=== PATIENT | female | born 1970 | race Caucasian/White ===

== ENCOUNTER → 2017-11-24 | Outpatient (CLI) | payer BC | LOC: FIMAGING 14:16 | PROVIDERS: ATTEND Physician Assistant | DX: M79.675 Pain in left toe(s) (principal); M79.89 Other specified soft tissue disorders ==

== ENCOUNTER → 2018-03-04 | Outpatient (CLI) | payer BC | LOC: BMCIMAGING 11:04 | PROVIDERS: ATTEND Podiatrist Foot & Ankle Surgery | DX: M79.672 Pain in left foot (principal); M89.8X7 Other specified disorders of bone, ankle and foot ==

== ENCOUNTER → 2018-03-10 | Outpatient (CLI) | payer BC | LOC: FIMAGING 11:40 → EDSTATUS 11:41 | PROVIDERS: ATTEND Family Medicine Sports Medicine | DX: M25.551 Pain in right hip (principal) ==